=== PATIENT | male | born 1965 | race Caucasian/White ===

== ENCOUNTER 2016-09-21 07:33 | Observation (INO) | payer OTHER ==
[~2016-09-21] VITALS: Ht 185.4 cm; Wt 53.7 kg
[~2016-09-21 07:33] MED LIST: ASPI325T4 PO; CARV6.252 PO; FURO20TA3 PO; LEVO750T6 PO; LISI5TAB7 PO; POTA8TAB6 PO; SPIR25TA3 PO; TAMS-11 PO
[2016-09-21] MEDS ORDERED: SODIUM CHLORIDE 0.9% 1,000 ML IV SCH ×2 (07:59→08:41)
[2016-09-21 08:03] VITALS: BP 139/93
[2016-09-21] MEDS ORDERED: POTA10TA11 PO (08:24)
[2016-09-21] MEDS ORDERED: xanax AD (08:26)
[2016-09-21] MEDS ORDERED: MIDAZOLAM 1 MG/ML, 5ML ONE ×2 (09:10→09:34)
[2016-09-21] MEDS ORDERED: CEFAZOLIN PMX 1GM/50ML 50 ML ONE (09:10)
[2016-09-21] MEDS ORDERED: CEFAZOLIN 1,000 MG ONE (09:10)
[2016-09-21] MEDS ORDERED: FENTANYL PF 100 MCG/2ML ONE ×2 (09:10→09:34)
[2016-09-21] MEDS ORDERED: LIDOCAINE 2%, 20ML ONE ×2 (09:11→09:47)
[2016-09-21] MEDS ORDERED: DIPHENHYDRAMINE 50 MG/ML, 1ML ONE (09:35)
[2016-09-21] MEDS ORDERED: ZOLPIDEM 5MG TABLET PO PRN (11:00)
[2016-09-21] MEDS: SODIUM CHLORIDE FLUSH 10ML SYR IVF SCH ×2 (11:00→19:39)
[2016-09-21 12:48] VITALS: BP 137/92
[2016-09-21] MEDS: HYDROcodone/APAP 5/325 TABLET PO PRN ×2 (13:39→17:36)
[2016-09-21] MEDS: morphine SULFATE 10 MG/ML, 1ML IVPush PRN ×2 (15:45→19:50)
[2016-09-21] MEDS: CEFAZOLIN PMX 1GM/50ML 50 ML IVPB SCH (15:45)
[2016-09-21] MEDS: CARVEDILOL 6.25 MG TABLET PO SCH (17:20)
[2016-09-21 18:41] VITALS: BP 128/79
[2016-09-22] MEDS: HYDROcodone/APAP 5/325 TABLET PO PRN ×3 (00:02→10:05)
[2016-09-22] MEDS: CEFAZOLIN PMX 1GM/50ML 50 ML IVPB SCH ×2 (00:02→07:53)
[2016-09-22 01:39] VITALS: BP 142/91
[2016-09-22] MEDS: CARVEDILOL 6.25 MG TABLET PO SCH (05:24)
[2016-09-22] MEDS ORDERED: ASPIRIN 81 MG TABLET EC PO SCH (06:00)
[2016-09-22 06:55] VITALS: BP 136/95
[2016-09-22] MEDS ORDERED: HYDR-3138 PO (07:41)
[2016-09-22] MEDS: SODIUM CHLORIDE FLUSH 10ML SYR IVF SCH (07:54)
[2016-09-22] MEDS ORDERED: SPIRONOLACTONE 25 MG TABLET PO SCH (09:00)
[2016-09-22] MEDS ORDERED: FUROSEMIDE 20 MG TABLET PO SCH (09:00)
[2016-09-22] MEDS ORDERED: LISINOPRIL 5 MG TABLET PO SCH (09:00)
[2016-09-22] MEDS ORDERED: POTASSIUM CHLORIDE 10 MEQ TABLET.ER PO SCH (09:00)
== END 2016-09-22 10:50 | disposition home or self-care (01) ==
LOC: CACL 07:33 → ORIP 10:32 → 5SO 10:58
PROVIDERS: ADMIT Internal Medicine Cardiovascular Disease; ATTEND Internal Medicine Cardiovascular Disease
DX: I42.9 Cardiomyopathy, unspecified (principal); I50.1 Left ventricular failure, unspecified; F17.210 Nicotine dependence, cigarettes, uncomplicated
CPT/HCPCS: 33249; 71010; 93005; 96365; 96375; 96376; C1721; C1779; C1892; C1895; G0378; J0690; J1200; J2250; J2270; J3010; J3490